=== PATIENT | male | born 1995 | race Hispanic/Latino ===

== ENCOUNTER 2017-11-19 15:48 | Emergency (ER) | payer OTHER ==
[~2017-11-19] VITALS: Ht 177.8 cm; Wt 72.6 kg
[2017-11-19 16:14] VITALS: BP 125/67
--- NOTE | 2017-11-19 16:23 | ER.PDOC ---
General Chief Complaint: Sore Throat Stated Complaint: FLU-LIKE SYMPTOMS Time seen by MD: 16:17 Source: patient Exam Limitations: no limitations History of Present Illness Initial Comments Sore throat and fever for 2 days. Timing/Duration: gradual Associated Symptoms: mild sore throat Severity: moderate Allergies: Coded Allergies: No Known Allergies (Unverified , 11/19/17) Past Medical History Medical History: no pertinent history Surgical History: no surgical history Social History Smoking: non-smoker Alcohol Use: occassionally Drug Use: none Constitutional: see HPI Eyes: no symptoms reported Nose: no symptoms reported Mouth: no symptoms reported Throat: see HPI Respiratory: no symptoms reported Cardiovascular: no symptoms reported Gastrointestinal: no symptoms reported All Other Systems: Reviewed and Negative Physical Exam General Appearance: alert, no distress Head/Neck: head nml inspection, neck nml inspection, trachea midline, no lymphadenopathy, thyroid nml Mouth: lips, gums nml, no drooling, no thrush, membranes nml Throat: pharyngeal erythema, tonsillar exudate Ears/Nose: nml inspection Respiratory: no resp. distress, lungs clear CVS: reg. rate & rhythm, heart sounds nml Abdomen: non-tender, no organomegaly Extremities: non-tender, ROM nml Skin Exam: Normal Color, Warm/Dry NEURO/PSYCH: oriented X3, mood/effect nml Departure Time of Disposition: 16:18 Disposition: 01 HOME, SELF-CARE Impression: Primary Impression: Acute tonsillitis Qualified Codes: J03.90 - Acute tonsillitis, unspecified Condition: Stable Referrals: PCP,UNKNOWN (PCP) PRIMARY CARE PROVIDER Additional Instructions: Amoxil Chloraseptic spray OTC as needed for throat pain Ibuprofen 600mg PO TID PRN fever or bodyaches with food F/U with your PCP in 3-4 days Duration or Time Spent with Pa: 20 mins TALIB LEVINE MD Nov 19, 2017 16:22
[2017-11-19 16:37] VITALS: BP 123/64
[2017-11-19 16:40] VITALS: BP 123/64
== END 2017-11-19 16:37 | disposition home or self-care (01) ==
LOC: ER 15:48
DX: J03.90 Acute tonsillitis, unspecified (principal)
CPT/HCPCS: 99283